=== PATIENT | female | born 1960 | race Caucasian/White ===

== ENCOUNTER 2019-10-06 18:04 | Emergency (ER) | payer MEDICAID ==
[~2019-10-06] VITALS: Ht 157.5 cm; Wt 55.0 kg
[2019-10-06] MEDS ORDERED: ACETAMINOPHEN 325MG TABLET PO ONE (19:15)
[2019-10-06 23:51] LABS: BASOPHILS % 0.9 % (0.0-2.0); EOSINOPHILS % 0.8 % (0.0-5.0); HEMATOCRIT. 36.9 % (36.0-48.0); HEMOGLOBIN. 12.5 g/dL (12.0-16.0); LYMPHOCYTES % 37.9 % (20.0-50.0); MEAN CORPUSCULAR HEMOGLOBIN 33.8 pg (28.0-32.0); MEAN CORPUSCULAR VOLUME 99.5 fL (81.0-99.0); MEAN PLATELET VOLUME 9.3 fl (7.4-10.4); MONOCYTES % 9.4 % (2.0-8.0); PLATELET 88 x1000/uL (130-400); RED CELL DISTRIBUTION WIDTH 14.7 % (11.6-14.6)
[2019-10-06 23:55] LABS: CHLORIDE 102 mEq/L (98-107)
[2019-10-07] MEDS ORDERED: SODIUM CHLORIDE 0.9% 1,000 ML IV ONE (00:42)
[2019-10-07] MEDS ORDERED: KETOROLAC 30MG/ML VIAL IV STA (00:42)
[2019-10-07 01:18] LABS: INR 1.1; PROTHROMBIN TIME 11.5 sec (9.6-11.0)
[2019-10-07] MEDS ORDERED: METFORMIN HCL 500MG TABLET PO SCH (09:00)
[2019-10-07 10:50] VITALS: BP 115/70
== END 2019-10-07 11:26 | disposition home or self-care (01) ==
LOC: ER 18:04
DX: S32.029A Unspecified fracture of second lumbar vertebra, initial encounter for closed fracture (principal); E11.65 Type 2 diabetes mellitus with hyperglycemia; Z59.0 Homelessness; Z88.0 Allergy status to penicillin; Z88.5 Allergy status to narcotic agent; Z75.1 Person awaiting admission to adequate facility elsewhere; Y04.2XXA Assault by strike against or bumped into by another person, initial encounter; Y93.89 Activity, other specified; Y92.830 Public park as the place of occurrence of the external cause
CPT/HCPCS: 36415; 72100; 72131; 80053; 82962; 85025; 85610; 99285; J7030